=== PATIENT | male | born 1980 | race Two or more races ===

== ENCOUNTER 2021-02-21 16:31 | Emergency (ER) | payer MEDICAID ==
[~2021-02-21] VITALS: Ht 175.3 cm; Wt 76.5 kg
[2021-02-21] MEDS ORDERED: dexamethasone sod phosphate 10mg/ml inj IV STA (16:58)
--- NOTE | 2021-02-21 16:59 | NUR ---
DR PARIS MADE AWARE OF PATIENT STATUS.
[2021-02-21] MEDS ORDERED: CLINDAMYCIN/D5W 900mg/50ml 50 ML IV ONE (17:00)
[2021-02-21] MEDS ORDERED: iohexol 300mg/ml 100ml inj. ONE (17:12)
[2021-02-21 17:44] LABS: BASOPHILS % (AUTO) 0.3 % (0-1); EOSINOPHILS % (AUTO) 0.1 % (0-6); HEMATOCRIT 43.8 % (42.0-52.0); HEMOGLOBIN 14.6 g/dl (14.0-17.9); LYMPHOCYTES % (AUTO) 6.3 % (21-51); MEAN CORPUSCULAR HEMOGLOBIN 29.3 PG (27.0-31.0); MEAN CORPUSCULAR HGB CONC 33.2 g/dL (33.0-36.5); MEAN CORPUSCULAR VOLUME 88.2 FL (78-98); MEAN PLATELET VOLUME 10.7 FL (7.4-10.4); MONOCYTES % (AUTO) 6.4 % (2-12); NEUTROPHILS # (AUTO) 13.8 X10'3 (1.8-7.7); NEUTROPHILS % (AUTO) 86.9 % (42-75); PLATELET COUNT 157 X10'3 (140-440); RED BLOOD COUNT 4.97 X10'6 (4.70-6.10); WHITE BLOOD COUNT 15.8 X10'3 (4.5-11.0)
[2021-02-21] MEDS ORDERED: LIDOcaine Viscous 15ml cup MM PRN (18:00)
[2021-02-21 18:25] LABS: ALANINE AMINOTRANSFERASE 47 U/L (12-78); ALBUMIN 4.1 G/DL (3.4-5.0); ALBUMIN/GLOBULIN RATIO 0.8 (1.1-1.5); ALKALINE PHOSPHATASE 78 IU/L (46-116); ANION GAP 10 (8-16); ASPARTATE AMINO TRANSFERASE 26 U/L (10-37); BLOOD UREA NITROGEN 18 MG/DL (7-18); BUN/CREATININE RATIO 23.1 (5.4-32.0); CALCIUM 9.2 MG/DL (8.5-10.1); CHLORIDE 100 MMOL/L (99-107); CREATININE 0.78 MG/DL (0.60-1.10); GLUCOSE 102 MG/DL (70-104); POTASSIUM 3.9 MMOL/L (3.5-5.1); SODIUM 138 MMOL/L (135-145); TOTAL CARBON DIOXIDE 27.8 MMOL/L (24-32); eGFR > 90 ML/MIN
[2021-02-21] MEDS ORDERED: LIDO20SO16 PO (19:34)
[2021-02-21] MEDS ORDERED: PRED20TA PO (19:34)
[2021-02-21] MEDS ORDERED: CLIN150C2 PO (19:34)
[2021-02-21 20:07] VITALS: BP 118/74
== END 2021-02-21 20:09 | disposition home or self-care (01) ==
LOC: ER 16:32
DX: J36 Peritonsillar abscess (principal); Z79.2 Long term (current) use of antibiotics; Z79.899 Other long term (current) drug therapy
CPT/HCPCS: 36415; 42700; 70491; 80053; 83605; 84145; 85025; 87040; 87070; 87077; 87186; 96365; 96366; 96375; 99285; J1100; Q9967; J3490